=== PATIENT | male | born 1940 | race Caucasian/White ===

== ENCOUNTER 2021-02-24 18:01 | Emergency (ER) | payer MEDICARE, OTHER | END 2021-02-24 20:07 | disposition home or self-care (01) | LOC: ER1 18:01 | DX: S93.401A Sprain of unspecified ligament of right ankle, initial encounter (principal); W19.XXXA Unspecified fall, initial encounter | CPT/HCPCS: 73610; 99283 ==

== ENCOUNTER → 2022-01-27 | Outpatient (CLI) | payer MEDICARE, OTHER | LOC: CT 12:07 | DX: R31.0 Gross hematuria (principal) | CPT/HCPCS: Q9967 ==

== ENCOUNTER → 2022-02-15 | Outpatient (CLI) | payer MEDICARE, OTHER | LOC: HEART 5 09:40 | DX: R06.02 Shortness of breath (principal); R01.1 Cardiac murmur, unspecified; I08.3 Combined rheumatic disorders of mitral, aortic and tricuspid valves | CPT/HCPCS: 93306 ==

== ENCOUNTER → 2022-05-04 | Outpatient (CLI) | payer MEDICARE, OTHER | LOC: KOH-I 14:11 | DX: R25.1 Tremor, unspecified (principal) | CPT/HCPCS: 70450 ==